=== PATIENT | female | born 1930 | race Caucasian/White ===

== ENCOUNTER 2017-04-07 13:58 | Emergency (ER) | payer OTHER ==
[~2017-04-07] VITALS: Ht 157.5 cm; Wt 75.0 kg
[2017-04-07] MEDS ORDERED: ONDANSETRON 4 MG INJ IV STA (14:00)
[2017-04-07] MEDS ORDERED: morphine 4 MG/ML VIAL IV STA (14:00)
[2017-04-07 14:22] VITALS: Ht 157.5 cm; Wt 75.0 kg
[2017-04-07] MEDS ORDERED: PROPOFOL 200 MG INJ IV STA (14:51)
[2017-04-07] MEDS ORDERED: SOD CHLORIDE 0.9% 1,000 ML IV STA (15:56)
--- NOTE | 2017-04-07 16:00 | RADRPT ---
PROCEDURE: XR right shoulder. CLINICAL INDICATION: Fall. Right shoulder pain. TECHNIQUE: AP Internal and external rotation views of the right shoulder were performed. COMPARISON: None. FINDINGS: Limited evaluation due to patient positioning. No fracture or gross evidence of dislocation. The xiomara mitesh are normal in mineralization without cortical disruption. The humeral head articulates normally with the glenoid. The acromioclavicular and glenohumeral joints are unremarkable. The scapula and v isualized thoracic structures are unremarkable. No soft tissue abnormality. IMPRESSION: 1. No fracture or gross evidence of dislocation. The study due to patient positioning. RPTAT:AAJJ Physician Bree Date Time Electronically viewed and signed by Physician Bree on 04/07/2017 16:00 ALBER/
[2017-04-07] MEDS ORDERED: HYDR-906 PO (16:17)
[2017-04-07] MEDS ORDERED: DOCU-144 PO (16:17)
--- NOTE | 2017-04-07 17:21 | RADRPT ---
PROCEDURE: XR Shoulder. CLINICAL INDICATION: Status post reduction . TECHNIQUE: Three views of the right shoulder are available for review. COMPARISON: 03:02 p.m. FINDINGS: The osseous structures, articular spaces, and surrounding soft tissues of the right shoulder are int act. No acute fracture or dislocation is seen. The glenohumeral joint is aligned without evidence o f dislocation. . There is degenerative arthrosis of the acromioclavicular joint.. The visualized po rtions of the right clavicle and upper right rib cage are equally unremarkable. IMPRESSION: 1. Degenerative arthrosis of the acromioclavicular joint. 2. No acute fracture or dislocation is seen. RPTAT: RR .Serge Yancey MD, MD Date Time Electronically viewed and signed by .Serge Yancey MD, on 04/07/2017 17:20 .L/
[2017-04-07 17:35] VITALS: BP 152/70; PULSE 66; RESP 18; TEMP 97.8
--- NOTE | 2017-04-07 18:02 | ERD ---
ER Documentation Chief Complaint Date/Time DATE: 04/07/17 TIME: 17:58 Chief Complaint BROUGHT IN VIA EMS DUE TO MECHANICAL FALL WITH LEFT ARM INJURY HPI Patient is an 87-year-old female with no medical problems who presents with right arm pain. The patient was brought in by ambulance. She had a trip and fall just prior to arrival. She fell onto her right arm and now cannot lower her right arm below her head. Her right arm is extended above her head. She says that she has sharp pain and it hurts with movement. She has had no treatment as of yet. She is right-handed. ROS All systems reviewed and are negative except as per history of present illness. Medications Home Meds Active Scripts Docusate Sodium* (Colace*) 100 Mg Capsule, 100 MG PO TID, #30 CAP Prov:VERNON JAUREGUI MD 04/07/17 Hydrocodone/Acetaminophen ([place] 5-325 Tablet) 1 Each Tablet, 1 TAB PO Q6H Y for PAIN, #7 TAB Prov:VERNON JAUREGUI MD 04/07/17 Allergies Allergies: Coded Allergies: No Known Allergy (Unverified , 04/07/17) PMhx/Soc Medical and Surgical Hx: pt denies Medical Hx, Unable to obtain Hx Alcohol Use: No Hx Substance Use: No Hx Tobacco Use: No Smoking Status: Never smoker FmHx Family History: No diabetes Physical Exam Vitals Vital Signs Date Time Temp Pulse Resp B/P Pulse Ox O2 Delivery O2 Flow Rate FiO2 04/07/17 17:35 97.8 66 18 152/70 100 Room Air 04/07/17 16:22 98.6 61 18 168/74 100 Nasal Cannula 2.0 04/07/17 14:22 98.6 92 18 144/72 96 Physical Exam Const: Moderate distress secondary to shoulder pain Head: Atraumatic Eyes: Normal Conjunctiva ENT: Normal External Ears, Nose and Mouth. Neck: Full range of motion..~ No meningismus. Resp: Clear to auscultation bilaterally Cardio: Regular rate and rhythm, no murmurs Abd: Soft, non tender, non distended. Normal bowel sounds Skin: No petechiae or rashes Back: No midline or flank tenderness Ext: Right arm is extended above the head and patient is exquisitely tender with any range of motion at the shoulder Neur: Awake and alert, Patient has all 3 nerve roots of the right upper extremity intact with good pulses Psych: Normal Mood and Affect Results 24 hrs Current Medications Medications (Trade) Dose Ordered Sig/Thomas Route PRN Reason Start Time Stop Time Status Last Admin Dose Admin Morphine Sulfate (morphine) 4 mg ONCE STAT IV 04/07/17 14:00 04/07/17 14:02 DC 04/07/17 15:49 Ondansetron HCl (Zofran Inj) 4 mg ONCE STAT IV 04/07/17 14:00 04/07/17 14:02 DC 04/07/17 15:48 Propofol 200 mg 200 mg ONCE STAT IV 04/07/17 14:51 04/07/17 14:53 DC 04/07/17 15:49 Sodium Chloride (NS) 1,000 ml @ 1,000 mls/hr Q1H STAT IV 04/07/17 15:56 04/07/17 16:55 DC 04/07/17 16:29 Procedures/MDM X-ray Shoulder 2V Interpreted by me: Bones: No obvious fracture Joints: Unclear whether there is dislocation with limited views foreign body: None Procedural Sedation: Pre-assessment performed. See preceding complete history and physical for details. Time out performed. See sedation documentation for details. Medication(s): Propofol 60 mg IV Complications: No hypoxic or apneic events Recovered without incident. Greater than 15 minutes of face to face time included in sedation and recovery. Shoulder Reduction by me: Anesthesia: Propofol 60 mg IV Location: Right shoulder Technique: Traction countertraction Results: Sabianist of normal anatomic positioning Compl: Neurovascularly intact post procedure. Splint Note Type: Shoulder immobilizer Location: Right upper extremity Indication: Right shoulder dislocation Splint Assessment: Neurovascularly intact post splint placement with good fit. Post-reduction X-ray Shoulder 2V Interpreted by me: Bones: No obvious fracture Joints: Relocation of previously noted dislocation Foreign body: None The patient can follow-up with Dr. Clemente from orthopedic surgery or her doctor in [place] when she returns. The patient can take [place] for pain and will be given Colace to prevent constipation. She can return for any worsening symptoms. Departure Diagnosis: Primary Impression: Shoulder dislocation Encounter type: initial encounter Laterality: right Qualified Code: S43.004A - Dislocation of right shoulder joint, initial encounter Condition: Fair Patient Instructions: Dislocation: Shoulder (Reduced) Referrals: SANGEETA CLEMENTE MD Additional Instructions: SPECIALIST: YOU HAVE A MEDICAL CONDITION WHICH REQUIRES YOU TO SEE A SPECIALIST WITHIN THE NEXT 1-2 DAYS. PLEASE FOLLOW UP WITH YOUR PRIMARY PHYSICIAN FOR REFFERAL.IF YOU DO NOT HAVE A PRIMARY CARE PHYSICIAN AND/OR YOU CAN NOT AFFORD TO SEE A PHYSICIAN THE FOLLOWING RESOURCES HAVE BEEN SUPPLIED TO YOU. IT IS YOUR RESPONSIBILITY TO BE SEEN BY THE SPECIALIST VERNON JAUREGUI MD Apr 07, 2017 18:02
== END 2017-04-07 17:40 | disposition home or self-care (01) ==
LOC: E/R 13:58
DX: S43.004A Unspecified dislocation of right shoulder joint, initial encounter (principal); W01.0XXA Fall on same level from slipping, tripping and stumbling without subsequent striking against object, initial encounter; Y92.9 Unspecified place or not applicable
CPT/HCPCS: 23650; 73030; 96374; 96375; 99285; J2270; J2405; J7030